=== PATIENT | male | born 1940 | race African-American/Black ===

== ENCOUNTER 2017-11-16 16:09 | Emergency (ER) | payer MEDICARE, OTHER ==
[2017-11-16 18:39] LABS: Hematocrit 45 % (42-52); Hemoglobin 14.7 g/dl (14.0-18.0); Mean Corpuscular HGB Conc 32 g/dl (31-36); Mean Corpuscular Hemoglobin 31 pg (27-31); Mean Corpuscular Volume 95 fL (80-94); Mean Platelet Volume 10 um3 (7.4-10.4); Red Blood Count 4.78 10^6/ul (4.0-5.4); Red Cell Distribution Width 15 % (10.5-15); White Blood Count 4.9 10^3/ul (3.5-10.8)
[2017-11-16 18:41] LABS: Add Diff/Slide Review? Slide Review Added; Comments Flag Yes
[2017-11-16 18:53] LABS: Albumin 4.4 g/dL (3.2-5.2); BUN/Creatinine Ratio 15.3 (8-20); Calcium 9.3 mg/dL (8.6-10.3); EGFR African American 73.1 (>60); EGFR Non-African American 56.8 (>60); Globulin 2.9 g/dL (2-4); Total Bilirubin 0.5 mg/dL (0.2-1.0); Total Protein 7.3 g/dL (6.4-8.9)
[2017-11-16] MEDS ORDERED: Rivaroxaban TAB(*) 15 MG PO SCH (19:00)
[2017-11-16 19:48] VITALS: BP 172/90
--- NOTE | 2017-11-17 04:26 | ED ---
Tobias Mendoza Angela, scribed for Radha Truong MD on 11/16/17 at 1804 . Lower Extremity - HPI Summary HPI Summary: This pt is a 76 y/o male presenting to [facility] referred by US c/o left lower extremity swelling. Pt was sent from ultrasound for evaluation of deep vein thrombosis found on his US today. He reports that 3 weeks ago he had pain in his left knee. Pt states that he began to feel left foot pain when he would put shoes and socks on. He additionally notes some SOB, but he attributes it to the change in weather. Pt notes he has blurry vision from his glaucoma. He denies abd pain, back pain, chest pain, headache, ear ache, cough, vomiting, diarrhea. He denies any PMHx. Denies tobacco or alcohol use. Pt is not anticoagulated. He states he does bruise easily. - History of Current Complaint Chief Complaint: EDExtremityLower Stated Complaint: POSSIBLE BLOOD CLOT LT LEG Time Seen by Provider: 11/16/17 17:52 Hx Obtained From: Patient Mechanism Of Injury: Other - none Onset of Pain: Days Onset/Duration: Days Pain Intensity: 0 Timing: Lasting Days Location: Is Discrete @ - LLE Associated Signs And Symptoms: Positive: Swelling Able to Bear Weight: Yes - Allergies/Home Medications Allergies/Adverse Reactions: Allergies Allergy/AdvReac Type Severity Reaction Status Date / Time Penicillins [PCN] Allergy Mild Rash Verified 04/08/13 13:29 PMH/Surg Hx/FS Hx/Imm Hx Endocrine/Hematology History: Denies: Hx Diabetes Cardiovascular History: Reports: Hx Hypertension GI History: Denies: Hx Cirrhosis Sensory History: Reports: Hx Glaucoma - Surgical History Surgery Procedure, Year, and Place: prostate surgery Infectious Disease History: No Infectious Disease History: Reports: Hx Human Immunodeficiency Virus (HIV) Denies: Hx Hepatitis, Traveled Outside the [place] in Last 30 Days - Family History Known Family History: Negative: Other - colon CA - Social History Substance Use Type: Reports: None Smoking Status (MU): Never Smoked Tobacco Review of Systems Negative: Fever, Chills Positive: Blurred Vision - secondary to glaucoma Negative: Sore Throat, Ear Ache Negative: Chest Pain Positive: Shortness Of Breath - mild. Negative: Cough Negative: Abdominal Pain, Vomiting, Diarrhea, Nausea Positive: Edema - in LLE. Negative: Other - back pain Negative: Headache All Other Systems Reviewed And Are Negative: No Physical Exam - Summary Physical Exam Summary: Appearance: Alert, conversive, nontoxic appearing Skin: Warm, dry, no mottling, no rashes, no contusions. Lipoma on the right dorsal wrist. HEENT: EOMI, PERRL, moist mucous membranes Neck: No masses on the neck, supple Respiratory: Clear to auscultation, breath sounds present, no rales, no rhonchi , no wheezes Cardiovascular: RRR, pulses are symmetrical in both lower and upper extremities Abdomen: Soft, non-tender Bowel Sounds: Present Musculoskeletal: No CVA tenderness, no obvious deformity, moving all extremities in a grossly normal manner. No LLE swelling. No tenderness on LLE. Neurological: A&Ox3, CN II-XII Intact, moving all extremities symmetrically. Psychiatric: Normal affect and mood Triage Information Reviewed: Yes Vital Signs On Initial Exam: Initial Vitals Temp Pulse Resp BP Pulse Ox 98.0 F 62 18 166/97 100 11/16/17 16:12 11/16/17 16:12 11/16/17 16:12 11/16/17 16:12 11/16/17 16:12 Vital Signs Reviewed: Yes Diagnostics - Vital Signs Vital Signs Temp Pulse Resp BP Pulse Ox 11/16/17 16:12 98.0 F 62 18 166/97 100 - Laboratory Lab Results: Lab Results 11/16/17 11/16/17 Range/Units 18:27 18:27 WBC 4.9 (3.5-10.8) 10^3/ul RBC 4.78 (4.0-5.4) 10^6/ul Hgb 14.7 (14.0-18.0) g/dl Hct 45 (42-52) % MCV 95 H (80-94) fL MCH 31 (27-31) pg MCHC 32 (31-36) g/dl RDW 15 (10.5-15) % Plt Count 92 L (150-450) 10^3/ul MPV 10 (7.4-10.4) um3 Neut % (Auto) 59.7 (38-83) % Lymph % (Auto) 25.7 (25-47) % Edwards % (Auto) 10.8 H (1-9) % Eos % (Auto) 3.2 (0-6) % Baso % (Auto) 0.6 (0-2) % Absolute Neuts (auto) 2.9 (1.5-7.7) 10^3/ul Absolute Lymphs (auto) 1.2 (1.0-4.8) 10^3/ul Absolute Monos (auto) 0.5 (0-0.8) 10^3/ul Absolute Eos (auto) 0.2 (0-0.6) 10^3/ul Absolute Basos (auto) 0 (0-0.2) 10^3/ul Absolute Nucleated RBC 0 10^3/ul Nucleated RBC % 0.1 Sodium 137 (133-145) mmol/L Potassium 4.0 (3.5-5.0) mmol/L Chloride 113 H (101-111) mmol/L Carbon Dioxide 19 L (22-32) mmol/L Anion Gap 5 (2-11) mmol/L BUN 19 (6-24) mg/dL Creatinine 1.24 H (0.67-1.17) mg/dL Est GFR ( Amer) 73.1 (>60) Est GFR (Non-Af Amer) 56.8 (>60) BUN/Creatinine Ratio 15.3 (8-20) Glucose 100 (70-100) mg/dL Calcium 9.3 (8.6-10.3) mg/dL Total Bilirubin 0.50 (0.2-1.0) mg/dL AST 20 (13-39) U/L ALT 12 (7-52) U/L Alkaline Phosphatase 58 (34-104) U/L Total Protein 7.3 (6.4-8.9) g/dL Albumin 4.4 (3.2-5.2) g/dL Globulin 2.9 (2-4) g/dL Albumin/Globulin Ratio 1.5 (1-3) Result Diagrams: 11/16/17 18:27 11/16/17 18:27 Lab Statement: Any lab studies that have been ordered have been reviewed, and results considered in the medical decision making process. - Additional Comments Diagnostic Additional Comments: Venous Doppler Study, Left, as read per radiologist: IMPRESSION: Acute deep venous thrombosis. Dr. Truong has reviewed this radiology report. Lower Extremity Course/Dx - Course Course Of Treatment: Pt is a 76 y/[facility] for deep vein thrombosis found on his ultrasound today. Pt will be discharged to home with a prescription for Xarelto. - Diagnoses Provider Diagnoses: Deep vein thrombosis Discharge - Discharge Plan Condition: Stable Disposition: HOME Prescriptions: Rivaroxaban TAB(*) [Xarelto 15 mg(*)] 15 mg PO BID #42 tab Referrals: Hank Lombardi MD [Primary Care Provider] - Additional Instructions: Follow up with your doctor in 2-3 days. return if worse or any new symptoms. It is important to follow up with your primary care physician. Take the xarelto 15mg by mouth twice a day for the next 21 days. Take with food. your doctor will change the dose and frequency after the 21st day of medication. The documentation as recorded by the Tobias zhang Angela accurately reflects the service I personally performed and the decisions made by , Radha Truong MD.
== END 2017-11-16 19:49 | disposition home or self-care (01) ==
LOC: ED 16:09
DX: I82.4Z2 Acute embolism and thrombosis of unspecified deep veins of left distal lower extremity (principal); H53.8 Other visual disturbances; R06.02 Shortness of breath; R60.1 Generalized edema
CPT/HCPCS: 36415; 80053; 85025; 85060; 99282

== ENCOUNTER 2018-05-18 15:10 | Emergency (ER) | payer MEDICARE, OTHER ==
[2018-05-18 15:22] VITALS: BP 139/86
[2018-05-18] MEDS ORDERED: Lidocaine 1% MPF* 2 ML VIAL INJ ONE (15:42)
[2018-05-18] MEDS ORDERED: Lidocaine 1%* 5 ML VIAL ONE (15:46)
--- NOTE | 2018-05-18 18:26 | UC ---
Brando Mendoza Jade, scribed for Clement Vicente MD on 05/18/18 at 1539 . Skin Complaint HPI - HPI Summary HPI Summary: Pt is a 77 y/o male who presents to [facility] c/o sebaceous cyst. He states he has had the cyst on the back of his right shoulder for 3 weeks. The other day, he noticed a foul odor and saw a stain on his shirt. His cyst has become infected and is oozing both puss and blood. Pt has pressed the cyst in order to drain some puss. Pt wears a bandage on the cyst. He states the pain is now a 9/10 in severity, and is described as aching, sharp, and stabbing. He denies any fever or chills. Pt had a DVT 6 months ago, and is currently on Xarelto. He has not wanted to treat the cyst because he is on blood thinners. Pt is not on antibiotics. PMHx HIV. - History of Current Complaint Chief Complaint: UCSkin Time Seen by Provider: 05/18/18 15:32 Stated Complaint: CYST Hx Obtained From: Patient Onset/Duration: Gradual Onset, Lasting Weeks - 3 weeks, Worse Since Current Severity: Severe Pain Intensity: 9 Pain Scale Used: 0-10 Numeric Location: Other - Back of right shoulder Character: Pain - Aching, sharp, stabbing, Raised Aggravating Factor(s): Touch Alleviating Factor(s): Nothing Associated Signs & Symptoms: Positive: Drainage - Serosanguineous. Negative: Fever, Chills - Allergy/Home Medications Allergies/Adverse Reactions: Allergies Allergy/AdvReac Type Severity Reaction Status Date / Time Penicillins Allergy Rash Verified 05/18/18 15:22 Review of Systems Constitutional: Negative - Fever, chills Skin: Other - Sebaceous cyst on back of right shoulder, serosanguineous drainage , painful to touch All Other Systems Reviewed And Are Negative: Yes PMH/Surg Hx/FS Hx/Imm Hx Previously Healthy: No - HIV Endocrine History: Other - Glaucoma Other Endocrine History: . Cardiovascular History: Hypertension, Deep Vein Thrombosis GI/ History: Other - Pancreatitis Other GI/ History: . Other History Of: HIV - Surgical History Surgical History: Yes Surgery Procedure, Year, and Place: prostate surgery - Family History Known Family History: Negative: Other - colon CA - Social History Alcohol Use: Rare Substance Use Type: Marijuana Substance Use Comment - Amount & Last Used: once or twice a month Smoking Status (MU): Former Smoker Household Exposure Type: Cigarettes Physical Exam - Summary Physical Exam Summary: General: well-appearing, no pain distress Skin: warm, color reflects adequate perfusion, dry. 3 cm in diameter raised, erythematous, infected sebaceous cyst on posterior aspect of right shoulder. Head: normal Eyes: EOMI, JOCY ENT: normal Neck: supple, nontender Respiratory: CTA, breath sounds present Cardiovascular: RRR Abdomen: soft, nontender Bowel: present Musculoskeletal: normal, strength/ROM intact Neurological: sensory/motor intact, A&O x3 Psychological: affect/mood appropriate Triage Information Reviewed: Yes Vital Signs: Initial Vital Signs Temp 98.4 F 05/18/18 15:17 Pulse 56 05/18/18 15:17 Resp 18 05/18/18 15:17 BP 139/86 05/18/18 15:17 Pulse Ox 139 05/18/18 15:17 Vital Signs Reviewed: Yes Course/Dx - Course Course Of Treatment: Medications reviewed. Allergies noted. F/U WITH DERMATOLOGY; GET RECHECKED SOONER IF WORSE. - Diagnoses Provider Diagnoses: INFECTED SEBACEOUS CYST, RIGHT SHOULDER Procedures - Incision and Drainage Right Upper Back Site: Betadyne prep, posterior aspect of right shoulder. Culture sent. Anesthesia: Lidocaine Instrument(s): Scalpel Packing: Gauze Discharge - Sign-Out/Discharge Documenting (check all that apply): Discharge/Admit/Transfer - Discharge - Discharge Plan Condition: Stable Disposition: HOME Prescriptions: Clindamycin Cap(NF) [Clindamycin Cap 300 mg Cap(NF)] 300 mg PO Q6H #40 cap Patient Education Materials: Abscess (ED), Epidermal Inclusion Cysts (ED) Referrals: Ed Arroyo MD [Medical Doctor] - Hank Lombardi MD [Primary Care Provider] - Additional Instructions: FOLLOW UP WITH YOUR PRIMARY CARE DOCTOR AND DERMATOLOGY. GET RECHECKED FOR ANY WORSENING OF YOUR CONDITION OR QUESTIONS OR CONCERNS. - Billing Disposition and Condition Condition: STABLE Disposition: Home The documentation as recorded by the Brando zhang Jade accurately reflects the service I personally performed and the decisions made by me, Clement Vicente MD.
--- NOTE | 2018-05-19 10:23 | UC ---
- Progress Note Progress Note: mrsa neg staph neg wound cutlure pending pt on clinda await sensitivity oneliaj 05/19/2018 Discharge - Sign-Out/Discharge Documenting (check all that apply): Post-Discharge Follow Up - Discharge Plan Condition: Stable Disposition: HOME Prescriptions: Clindamycin Cap(NF) [Clindamycin Cap 300 mg Cap(NF)] 300 mg PO Q6H #40 cap Patient Education Materials: Abscess (ED), Epidermal Inclusion Cysts (ED) Referrals: Ed Arroyo MD [Medical Doctor] - Hank Lombradi MD [Primary Care Provider] - Additional Instructions: FOLLOW UP WITH YOUR PRIMARY CARE DOCTOR AND DERMATOLOGY. GET RECHECKED FOR ANY WORSENING OF YOUR CONDITION OR QUESTIONS OR CONCERNS. - Billing Disposition and Condition Condition: STABLE Disposition: Home
== END 2018-05-18 16:40 | disposition home or self-care (01) ==
LOC: UCEAST 15:10
DX: L72.3 Sebaceous cyst (principal); B20 Human immunodeficiency virus [HIV] disease; Z87.891 Personal history of nicotine dependence; Z86.718 Personal history of other venous thrombosis and embolism; K85.90 Acute pancreatitis without necrosis or infection, unspecified
CPT/HCPCS: 10060; 87070; 87205; 87640; 87641; 99212; G0463

== ENCOUNTER 2019-09-09 23:53 | Emergency (ER) | payer MEDICARE, OTHER ==
[2019-09-10] MEDS ORDERED: diPHENhydraMINE IV* 50 MG/ML 1 ml VIAL (BENADRYL) IV ONE (00:06)
[2019-09-10] MEDS ORDERED: Famotidine IV* 10 MG/ML 2 ML (20 mg) IV SLOW PU ONE (00:06)
--- OUTSIDE RECORDS SUMMARY | 2019-09-10 00:36 | XMS REPORT | Continuity of Care Document ---
:1940 External Reference #:[id number] Author Name Jasmin Kitchen MD (transmitted by agent of provider Johanne Pavon) Address [address], [place] [address] Care Team Providers Name Role Phone Ed Arroyo MD - Dermatology Care Team Information Photoengraver Apprentice Flip Frye MD - Gastroenterology Care Team Information Photoengraver Apprentice Pedrito Martinez M.D. - Hematology & Care Team Information Photoengraver Apprentice Oncology Jasmin Kitchen MD - Internal Medicine Care Team Information Photoengraver Apprentice Problems Active Problems Provider Date Human immunodeficiency virus infection Hank Lombardi M.D. Onset: 2016 Essential hypertension Hank Lombardi M.D. Onset: 06/21/2017 Mixed hyperlipidemia Hank Lombardi M.D. Onset: 06/21/2017 Contact dermatitis Hank Lombardi M.D. Onset: 06/21/2017 Digestive symptom Hank Lombardi M.D. Onset: 08/17/2017 Malignant tumor of prostate Hank Lombardi M.D. 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 Onset: Deep venous thrombosis Hank Lombardi M.D. Onset: 10/07/2018 Social History Type Date Description Comments Sex Unknown ETOH Use Drinks Alcoholic Beverages Occasionally Tobacco Use Start: Unknown End: Patient is a former smoker Unknown Recreational Drug Use Denies Drug Use Smoking Status Reviewed: 08/31/19 Patient is a former smoker Allergies, Adverse Reactions, Alerts Active Allergies Reaction Severity Comments Date Penicillins Allergic asthma, Moderate "rash, swelling of the 06/21/2017 Urticaria face" Medications Active Medications SIG Qnty Indications Ordering Date Provider Lisinopril 1 by mouth every 30tabs I10 Jasmin Kitchen MD 08/31/2019 10mg Tablets day Brimonidine Tartrate 1 drop in eyes Unknown three times a day 0.15% Solution Istalol one drop in both Unknown 0.5% Solution eyes after breakfast Travatan Z one drop in both Unknown 0.004% eyes at bedtime Solution Acetazolamide ER 1 tab by mouth Unknown 500mg twice a day Caps ER 12HR Isentress 1 by mouth twice Unknown 400mg Tablets a day Prezista 1 by mouth every Unknown 800mg Tablets day Pravastatin Sodium 1 by mouth every 90tabs Jasmin Kitchen MD 10mg day Tablets Ritonavir 1 by mouth every Unknown 100mg Tablets day Immunizations CPT Code Status Date Vaccine Lot # [id number] Given 10/07/2018 Influenza Virus Vaccine, Quadrivalent, Split, [id number] Preservative Free Vital Signs Date Vital Result Comment 08/31/2019 12:55pm Height 67 inches 5'7" Weight 140.00 lb Heart Rate 58 /min BP Systolic Sitting 163 mmHg BP Diastolic Sitting 92 mmHg Body Temperature 97.0 F O2 % BldC Oximetry 95 % BMI (Body Mass Index) 21.9 kg/m2 07/27/2019 3:52pm Height 67 inches 5'7" Weight 141.50 lb Heart Rate 57 /min BP Systolic 154 mmHg BP Diastolic 88 mmHg Body Temperature 97.2 F O2 % BldC Oximetry 94 % BMI (Body Mass Index) 22.2 kg/m2 Results Test Date Facility Test Result H/L Range Note CBC Auto 08/14/2019 [facility] White Blood 5.4 10^3/uL Normal 3.5-10.[address] [place] [address] [phone] Red Blood Count 4.85 10^6/uL Normal 4.18-5.48 Hemoglobin 15.2 g/dL Normal 14.0-18.0 Hematocrit 47 % Normal 42-52 Mean Corpuscular Volume 96 fL High 80-94 Mean Corpuscular Hemoglobin 31 pg Normal 27-31 Mean Corpuscular HGB Conc 33 g/dL Normal 31-36 Red Cell Distribution Width 15 % Normal 10-15 Platelet Count 87 10^3/uL Low 150-450 Mean Platelet Volume 11.6 fL High 7.4-10.4 Abs Neutrophils 3.1 10^3/uL Normal 1.5-7.7 Abs Lymphocytes 1.4 10^3/uL Normal 1.0-4.8 Abs Monocytes 0.6 10^3/uL Normal 0-0.8 Abs Eosinophils 0.2 10^3/uL Normal 0-0.6 Abs Basophils 0.1 10^3/uL Normal 0-0.2 Abs Nucleated RBC 0.0 10^3/uL Granulocyte % 58.0 % Lymphocyte % 25.9 % Monocyte % 11.1 % Eosinophil % 3.9 % Basophil % 1.1 % Nucleated Red Blood Cells % 0.1 Laboratory test 08/14/2019 [facility] D Dimer 743 ng/mL High Less [address] Quantitative [address] [place] [address] [phone] Please note: The following may produce a false positive D Dimer test: - Rheumatoid factor greater than 60 IU/ml - Plasma hemoglobin greater than 0.05 gm/dl - Bilirubin greater than 50 mg/dl - Lipids greater than 1000 mg/dl - FDP greater than 20 ug/ml Procedures Date Code Description Status 02/28/2015 35250938 Colonoscopy Completed Medical Devices Description No Information Available Encounters Type Date Location Provider Dx Diagnosis Office Visit 07/27/2019 [facility] Jasmin Kitchen MD I10 Essential ( primary) 3:40p Medicine - [facility] hypertension E78.2 Mixed hyperlipidemia I82.401 Acute embolism and thombos unsp deep veins of r low extrem Assessments Date Code Description Provider 08/31/2019 I10 Essential (primary) hypertension Jasmin Kitchen MD 07/27/2019 I10 Essential (primary) hypertension Jasmin Kitchen MD 07/27/2019 E78.2 Mixed hyperlipidemia Jasmin Kitchen MD 07/27/2019 I82.401 Acute embolism and thrombosis of unspecified deep Jasmin Kitchen MD veins of r Plan of Treatment Future Appointment(s):09/28/2019 1:00 pm - Jasmin Kitchen MD at [facility] Internal Medicine - [facility]08/31/2019 - Jasmin Kitchen MDI10 Essential (primary) hypertensionNew Medication:Lisinopril 10 mg - 1 by mouth every dayComments:Do the lab work 1-2 days prior to the appointmentFollow up:F/U 4 weeks Functional Status Description No Information Available Mental Status Description No Information Available Referrals Description No Information Available
--- OUTSIDE RECORDS SUMMARY | 2019-09-10 00:36 | XMS REPORT | Continuity of Care Document ---
:1940 External Reference #:[id number] Author Name Jasmin Kitchen MD (transmitted by agent of provider Kim Galicia) Address [address], [place] [address] Care Team Providers Name Role Phone Ed Arroyo MD - Dermatology Care Team Information Food Cart Attendant [phone] Flip Frye MD - Gastroenterology Care Team Information Food Cart Attendant [phone] Pedrito Martinez M.D. - Hematology & Care Team Information Food Cart Attendant Oncology Jasmin Kitchen MD - Internal Medicine Care Team Information Food Cart Attendant [phone] Problems Active Problems Provider Date Human immunodeficiency [...] Use Denies Drug Use Smoking Status Reviewed: 07/27/19 Patient is a former smoker Allergies, Adverse Reactions, Alerts Active Allergies Reaction Severity Comments Date Penicillins Allergic asthma, Moderate "rash, swelling of the 06/21/2017 Urticaria face" Medications Active Medications SIG Qnty Indications Ordering Date Provider Shanda 07/27/19 on hold 1 30tabs Hank 12/07/2017 20mg Tablets by mouth every Pachikara, M.D. day Brimonidine Tartrate 1 drop in eyes [...] CPT Code Status Date Vaccine Lot # [id number] Given 10/07/2018 Influenza Virus Vaccine, Quadrivalent, Split, [id number] Preservative Free Vital Signs Date Vital Result Comment 07/27/2019 3:52pm Height 67 inches 5'7" Weight 141.50 lb Heart Rate 57 /min BP Systolic 154 mmHg BP Diastolic 88 mmHg Body Temperature 97.2 F O2 % BldC Oximetry 94 % BMI (Body Mass Index) 22.2 kg/m2 10/07/2018 11:18am Height 67 inches 5'7" Weight 142.00 lb Heart Rate 60 /min BP Systolic 94 mmHg BP Diastolic 60 mmHg Respiratory Rate 16 /min Body Temperature 97.1 F BMI (Body Mass Index) 22.2 kg/m2 Results Description No Information Available Procedures Date Code Description Status 02/28/2015 06758736 Colonoscopy Completed Medical Devices Description No Information Available Encounters Description No Information Available Assessments Date Code Description Provider 07/27/2019 I10 Essential (primary) hypertension Jasmin Kitchen MD 07/27/2019 E78.2 Mixed hyperlipidemia Jasmin Kitchen MD 07/27/2019 I82.401 Acute embolism and thrombosis of unspecified deep Jasmin Kitchen MD veins of r Plan of Treatment Future Appointment(s):08/24/2019 3:40 pm - [facility] Jasmin Kitchen MDI10 Essential (primary) hypertensionComments:Please check your BP at home and f/u in 4-6 weeksFollow up: F/U 4-6 dojhmU00.2 Mixed hyperlipidemiaComments:Restart taking the pravastatin. Lipids are high this year after being off the bcphkxatxaL80.401 Acute embolism and thrombosis of unspecified deep veins of rComments:Continue to follow up with Dr. Liao/U D dimer is scheduled in july Functional Status Description No Information Available Mental Status Description No Information Available Referrals Description No Information Available
--- NOTE | 2019-09-10 00:42 | ED ---
Allergic Reaction/Systemic - HPI Summary HPI Summary: The pt is a 78 yr old male presenting to [facility] c/o lip swelling beginning 3 hours PROTEIN CHEMIST. He notes that he was eating dinner and afterwards he notes that his right lips were swollen. He mentions that he took a nap around 1630 today after taking lisinopril that he believes caused the swelling. He had one incident of lip swelling 10 years PROTEIN CHEMIST after taking penicillin. He rates his current pain severity a 0/10. No aggravating or alleviating factors noted. He also denies any CP or SOB. He has Hx of prostate cancer and prostatectomy. - History of Current Complaint Chief Complaint: EDAllergicReaction Time Seen by Provider: 09/10/19 00:04 Hx Obtained From: Patient Onset/Duration: Sudden Onset, Started hours ago, Still Present Timing: Constant, Lasting Hours Severity Initially: Mild Severity Currently: None Pain Intensity: 0 Pain Scale Used: 0-10 Numeric Character: Swelling Aggravating Factor(s): Nothing Alleviating Factor(s): Nothing - Allergies/Home Medications Allergies/Adverse Reactions: Allergies Allergy/AdvReac Type Severity Reaction Status Date / Time lisinopril Allergy Swelling Verified 09/10/19 00:13 Of Face,Lips,& Throat Penicillins Allergy Rash Verified 09/09/19 23:59 PMH/Surg Hx/FS Hx/Imm Hx Endocrine/Hematology History: Denies: Hx Diabetes Cardiovascular History: Reports: Hx Hypertension GI History: Denies: Hx Cirrhosis Sensory History: Reports: Hx Glaucoma Opthamlomology History: Reports: Hx Glaucoma - Cancer History Cancer Type, Location and Year: Prostate CA - Surgical History Surgery Procedure, Year, and Place: Prostatectomy - Immunization History Date of Tetanus Vaccine: UTD Date of Influenza Vaccine: 09/2017 Infectious Disease History: No Infectious Disease History: Reports: Hx Hepatitis - B, Hx Human Immunodeficiency Virus (HIV) Denies: Traveled Outside the [place] in Last 30 Days - Family History Known Family History: Negative: Other - colon CA - Social History Alcohol Use: Rare Substance Use Type: Reports: Marijuana Substance Use Comment - Amount & Last Used: once or twice a month Smoking Status (MU): Former Smoker Review of Systems - ROS Summary Review of Systems Summary: Home Medications Medication Instructions Recorded Confirmed Type Brimonidine P 0.1%(NF) [Alphagan P 1 drop .SEE ORDER BID 04/08/13 02/26/15 History 0.1% (NF)] Darunavir(NF) [Prezista(NF) (this 800 mg PO DAILY 04/08/13 02/26/15 History stregnth has been D/C by] Pravastatin (NF) [Pravachol (NF)] 10 mg PO DAILY 04/08/13 02/26/15 History Raltegravir* [Isentress*] 400 mg PO BID 04/08/13 02/26/15 History Ritonavir [Norvir] 100 mg PO DAILY 04/08/13 02/26/15 History Timolol 0.5% OPTH.JOSE* [Timoptic 1 drop .SEE ORDER BID 04/08/13 02/26/15 History 0.5% Opth*] Travoprost Z 0.004% OPHTH (NF) 1 drop BOTH EYES DAILY 04/08/13 02/26/15 History [Travatan Z 0.004% OPTH (NF)] Valsartan TAB* [Diovan TAB*] 160 mg PO DAILY 04/08/13 02/26/15 History acetaZOLAMIDE TAB* [Diamox Tab*] 250 mg PO 02/26/15 02/26/15 History Rivaroxaban TAB(*) [Xarelto 15 15 mg PO BID #42 tab 11/16/17 Rx mg(*)] Clindamycin Cap(NF) [Clindamycin 300 mg PO Q6H #40 cap 05/18/18 Rx Cap 300 mg Cap(NF)] Levofloxacin TAB* [Levaquin TAB*] 500 mg PO DAILY 7 Days #7 tab 05/21/18 Rx ENT: Other - pos - lip swelling Negative: Chest Pain Negative: Shortness Of Breath All Other Systems Reviewed And Are Negative: Yes Physical Exam - Summary Physical Exam Summary: General: Well-developed, Well-nourished male No acute distress. HEENT: Normocephalic, Atraumatic. Eyes: Conjuctiva normal, PERRL. Ears: TMs within normal limits. Nares: (-) discharge, (-) erythema. Oropharynx: Clear, mucous membranes moist, (-) exudates, swelling of the right lips, tongue is normal. Neck: Soft, FROM, (-) lymphadenopathy, (-) thyromegaly, (-) JVD. Cardiovascular: Normal sinus rhythm, (-) murmur. Lungs: Clear to auscultation bilaterally (-) wheezes, (-) rales, (-) rhonchi. Abdomen: Soft, non-tender, non-distended, (-) organomegaly, normal bowel sounds. Back: (-) CVA tenderness Extremities: No edema. Skin: Warm, dry, (-) rash. Neuro: Alert and oriented x3, no focal deficits. Psychiatric: Mood normal, affect normal. Triage Information Reviewed: Yes Vital Signs On Initial Exam: Initial Vitals Temp Pulse Resp BP Pulse Ox 97.2 F 98 15 166/94 100 09/09/19 23:55 09/09/19 23:55 09/09/19 23:55 09/09/19 23:55 09/09/19 23:55 Vital Signs Reviewed: Yes Procedures - Sedation Patient Received Moderate/Deep Sedation with Procedure: No Diagnostics - Vital Signs Vital Signs Temp Pulse Resp BP Pulse Ox 09/10/19 00:11 67 15 100 09/10/19 00:09 21 09/10/19 00:07 164/91 09/09/19 23:55 97.2 F 98 15 166/94 100 - Laboratory Lab Statement: Any lab studies that have been ordered have been reviewed, and results considered in the medical decision making process. Allergic Reaction Course/Dx - Course Course Of Treatment: The pt is a 78 yr old male presenting to [facility] c/o lip swelling beginning 3 hours PROTEIN CHEMIST. No test or imaging results to report. In the ED course pt was given 50 mg Benadryl, 40 mg Pepcid, and 125 mg Solu-Medrol. Final Dx is angioedema. Pt will be discharged home with PCP follow up. Pt is agreeable with this plan. - Diagnoses Provider Diagnoses: Angioedema Discharge ED - Sign-Out/Discharge Documenting (check all that apply): Patient Departure - discharge - Discharge Plan Condition: Stable Disposition: HOME Patient Education Materials: Angioedema (ED) Referrals: Jasmin Kitchen MD [Primary Care Provider] - 3 Days Additional Instructions: Please take Benadryl as needed. Please follow up with your primary care physician within three days. Please return to ED for any new or worsening symptoms. - Billing Disposition and Condition Condition: STABLE Disposition: Home - Attestation Statements Document Initiated by Scribe: Yes Documenting Scribe: Timmy Dewitt Provider For Whom Scribe is Documenting (Include Credential): Lana Tan MD Scribe Attestation: I, Timmy Dewitt, scribed for Lana Tan MD on 09/14/19 at 1926. Scribe Documentation Reviewed: Yes Provider Attestation: The documentation as recorded by the scribe, Timmy Dewitt accurately reflects the service I personally performed and the decisions made by me, Lana Tan MD Status of Scribe Document: Viewed
[2019-09-10] MEDS ORDERED: methylPREDNISolone 125 MG* 2 ML VIAL IV ONE (01:57)
[2019-09-10 05:07] VITALS: BP 137/91
== END 2019-09-10 05:07 | disposition home or self-care (01) ==
LOC: ED 23:53
DX: T78.3XXA Angioneurotic edema, initial encounter (principal); R60.0 Localized edema; R51 Headache; Z85.46 Personal history of malignant neoplasm of prostate; Z87.891 Personal history of nicotine dependence; I10 Essential (primary) hypertension; Z88.0 Allergy status to penicillin
CPT/HCPCS: 96374; 96375; 99283; J1200; J2930